=== PATIENT | female | born 1940 | race Two or more races ===

== ENCOUNTER 2023-06-29 21:35 | Emergency (ER) | payer OTHER ==
[~2023-06-29] VITALS: Ht 167.6 cm; Wt 59.0 kg
[2023-06-29] MEDS ORDERED: ACETAMINOPHEN 500 MG GEL..CAP PO STA (23:14)
== END 2023-06-30 00:16 | disposition home or self-care (01) ==
LOC: ER 21:35
DX: B02.8 Zoster with other complications (principal); Z88.8 Allergy status to other drugs, medicaments and biological substances